=== PATIENT | male | born 1995 | race African-American/Black ===

== ENCOUNTER 2016-09-22 23:34 | Emergency (ER) | payer SELFPAY ==
--- NOTE | 2016-09-22 23:54 | ED Physician Documentation ---
Flank Pain - HISTORIAN Historian: patient - HPI Chief Complaint: Flank Pain Additional Information: Pt is a 20 yo male that presents with right sided flank pain for the past 3 days. Pt reports the pain has been constant during this time but today it got a little bit worse. He reports laying flat relieves some of the pain and laying on his right side makes it worse. He reports radiation into his right groin. 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 He reports similar pain a few years back but states he doesn't really remember what they found out about that pain. He does not relate a history of kidney stones. Denies dysuria or hematuria. Onset: days ago Duration: constant Timing: worse Severity: moderate Quality: pain Associated Symptoms: chills, nausea, vomiting, sweating, back pain (right flank) . denies: fever, diarrhea Exacerbated by: other - ROS CONST: no problems GI/: other (flank pain with radiation to right groin). denies: constipation, bloody urine, problems urinating CVS/RESP: none EYES/ENT: none MS/SKIN/LYMPH: none NEURO/PSYCH: none - SOCIAL HX Smoking History: non-smoker - FAMILY HX Family History: none - PAST HX Past History: none. denies: kidney stones Other History: none Surgeries/Procedures: none - REVIEWED ASSESSMENTS Nursing Assessment Reviewed: Yes Vitals Reviewed: Yes Progress - Progress Progress: 1300 - Pt re-evaluated. Reports his pain is much better after being given a liter of IVF. His lab work and imaging are un-remarkable with exception of mildly elevated calcium. Pt does not appear toxic. I discussed the results of his workup with him and the need for follow up roughly 2 weeks for recheck of his calcium and urine to ensure the blood is gone. He is understanding and agreeable. ED Results Lab/Radiology - Radiology Radiology Impressions: CT Abd/Pelvis - Impression: 1. No evidence of hydronephrosis or hydroureter. 2. Punctate nonobstructing right intrarenal calculus noted. 3. Normal appendix. - Orders Orders: ED Orders Category Date Time Status Place Saline Lock/IV Now Care 09/22/16 23:[address] ABD & PELVIS W/O CON Stat Exams 09/22/16 Ordered CBC/PLATELET/DIFF Routine Lab 09/22/16 Ordered CMP Routine Lab 09/22/16 Ordered URINALYSIS Routine Lab 09/22/16 Ordered 0.9 % Sodium Chloride [Normal Saline] 1,000 ml Med 09/22/16 23:45 Ordered IV Q10H Abdominal Pain Physical Exam - Physical Exam General Appearance: no acute distress EENT: ENT inspection normal, pharynx normal RESPIRATORY: no resp distress, chest non-tender, breath sounds normal CVS: reg rate & rhythm, heart sounds normal ABDOMEN: soft, no organomegaly, normal bowel sounds, tenderness (mild TTP in RLQ , no gaurding or rebound tenderness. Negative heel tap) BACK: normal inspection, CVA tenderness (R) (Postive [employer] punch) SKIN: warm/dry, normal color EXTREMITIES: non-tender NEURO: oriented X3 Discharge Clincal Impression: Flank pain Additional Instructions: Increase your water intake over the next several days. You make take Ibuprofen or Tylenol for pain relief. Call tomorrow to schedule a follow up appointment with your PCP in 2 weeks to re -evaluate your calcium and urine. Return to the ED should your symptoms worsen. Home Medications: Ambulatory Orders NK [NK] 09/23/16 Condition: Good Disposition: 01 HOME, SELF-CARE Decision to Admit: NO Decision Time: 01:06
[2016-09-23] MEDS ORDERED: 0.9 % SODIUM CHLORIDE 1,000 ML IV ONE (00:04)
[2016-09-23] MEDS: 0.9 % SODIUM CHLORIDE 1,000 ML IV SCH (00:09)
[2016-09-23 00:11] LABS: BASOPHILS % 0.2 (0.0-1.5); EOSINOPHILS % 1.6 % (0.0-6.8); LYMPHOCYTES # 0.9 # k/uL (0.6-4.0); MONOCYTES # 0.2 # k/uL (0.0-0.9); MONOCYTES % 5.8 % (0.0-11.0); NEUTROPHILS # 2.8 # k/uL (1.4-7.7)
[2016-09-23 00:25] LABS: eGFR (African) > 60; eGFR (Non-African) > 60
[2016-09-23 02:13] VITALS: BP 121/75
--- NOTE | 2016-09-23 07:15 | Diagnostic Imaging Report ---
Report Submission Date: Sep 23, 2016 12:26:51 AM AIRCRAFT ASSEMBLER Patient ~ Study Name: MARCOS COURTNEY ~ Date: Sep 23, 2016 12:14:10 AM AIRCRAFT ASSEMBLER ~ Modality Type: CT\SR Gender: M ~ Description: CT ABD & PELVIS W/O CO : 95 ~ Institution: [facility] Physician: EDGAR LIANG ~ ~ ~ ~ CT abdomen pelvis without contrast History: Right Flank pain Technique:~Transaxial computed tomographic images of the abdomen and pelvis were obtained without the use of intravenous contrast according to standard protocol. Findings: The lung bases are clear. Heart size is normal. The liver, gallbladder, pancreas, spleen, and adrenal glands are normal. No evidence of hydronephrosis or hydroureter is present. There is a punctate nonobstructing calculus in the inferior calyx of the right kidney. There is no bowel wall thickening or dilation. Appendix is air filled and normal. Vascular structures are normal course and caliber. No adenopathy is present. The bladder is normal. There is no free fluid. Bone windows demonstrate mild narrowing of the L5/S1 intervertebral disc space Impression: 1. No evidence of hydronephrosis or hydroureter. 2. Punctate nonobstructing right intrarenal calculus noted. 3. Normal appendix. ~ Electronically signed on Sep 23, 2016 12:26:51 AM AIRCRAFT ASSEMBLER by: Gavin COUCH
[2016-09-23 07:26] LABS: APPEARANCE,URINE CLOUDY (CLEAR); COLOR,URINE YELLOW (YELLOW); OCCULT BLOOD,URINE TRACE-INTACT (NEGATIVE); PH URINE 7.5 (5.0 - 8.0)
== END 2016-09-23 01:23 | disposition home or self-care (01) ==
LOC: ED 23:34
DX: R10.9 Unspecified abdominal pain (principal)
CPT/HCPCS: 74176; 80053; 81002; 85025; 87088; J7030; 96360; 96361; 99283; S1016